=== PATIENT | female | born 1950 | race Caucasian/White ===

== ENCOUNTER → 2024-10-09 | Outpatient (CLI) | payer MEDICARE ==
--- NOTE | 2024-10-09 14:38 | XR ---
EXAMINATION TYPE: XR cervical spine comp DATE OF EXAM: 10/09/2024 2:14 PM COMPARISON: 10/09/2024. CLINICAL INDICATION: Female, 74 years old with history of M54.2, M47.812; PHH, pain TECHNIQUE: The cervical spine was imaged in frontal, lateral, odontoid and bilateral oblique. FINDINGS: The osseous structures show normal alignment without evidence of an acute fracture. There are osteoph ytes noted throughout the cervical spine on the anterior and lateral aspects of the vertebral bodies of C5-C6. The intervertebral disk spaces are narrowed at multiple levels. Pedicles are intact. Soft tissues are within normal limits. The odontoid appears intact. IMPRESSION: 1. No fracture or dislocation. 2. 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 [facility], , 10/09/2024 2:36 PM
== END | disposition home or self-care (01) ==
LOC: RADXRMAIN 13:56
PROVIDERS: ATTEND Chiropractor
DX: M47.812 Spondylosis without myelopathy or radiculopathy, cervical region (principal); M50.322 Other cervical disc degeneration at C5-C6 level
CPT/HCPCS: 72050